=== PATIENT | female | born 1970 | race African-American/Black ===

== ENCOUNTER 2016-11-16 21:25 | Emergency (ER) | payer OTHER ==
[~2016-11-16] VITALS: Ht 165.1 cm; Wt 117.9 kg
[2016-11-16] MEDS ORDERED: AMOXICILLIN500 MG ORAL (21:43)
[2016-11-16] MEDS ORDERED: IBUPROFEN800 MG ORAL (21:43)
[2016-11-16] MEDS ORDERED: Ketorolac 60mg Inj IM ONE (21:45)
[2016-11-16 21:56] VITALS: BP 119/81
[2016-11-16 21:58] VITALS: BP 119/81
--- NOTE | 2016-11-16 23:16 | Emergency Room Report ---
History of Present Illness General Chief Complaint: Sore Throat Source: Patient Present Illness HPI [id number] with 3 days right sided sore throat with pain radiating to right ear. Denies fever/chills, cough, URI symptoms, sick contacts. No OTC meds taken. Denies muffled voice, trouble handling secretions. Allergies: Coded Allergies: No Known Allergies (Unverified , 11/16/16) Patient History Past Medical History: none Past Surgical History: none Pertinent Family History: none Social History: Denies: alcohol use, drug use, smoking Last Menstrual Period: last month Now: No Immunizations: UTD Reviewed Nursing Documentation: PMH: Agreed, PSxH: Agreed Review of Systems All Other Systems: negative except mentioned in HPI Physical Exam Vital Signs Date Time Temp Pulse Resp B/P Pulse Ox O2 Delivery O2 Flow Rate FiO2 11/16/16 21:31 99.0 82 16 112/77 98 Room Air Sp02 EP Interpretation: reviewed, normal General Appearance: normal inspection, well appearing, no apparent distress, alert Head: atraumatic ENT: normal ENT inspection, hearing grossly normal, normal pharynx, no angioedema, normal voice, TMs + canals normal, uvula midline, moist mucus membranes, other - ++right tonsillar exudated with posterior oropharynx erythema Neck: normal inspection, full range of motion, supple, no bony tend Respiratory: normal inspection, lungs clear, normal breath sounds, no respiratory distress, no retraction, no wheezing Cardiovascular #1: regular rate, rhythm, no edema Gastrointestinal: normal inspection, normal bowel sounds, non tender, soft, no guarding, no hernia Genitourinary: no CVA tenderness Musculoskeletal: normal inspection, back normal, normal range of motion, Ángela' s Sign negative Neurologic: normal inspection, alert, oriented x3, responsive, sheet rocker III-XII nml as tested, motor strength/tone normal, speech normal Psychiatric: normal inspection, judgement/insight normal, mood/affect normal Skin: normal inspection, normal color, no rash Medical Decision Making Diagnostic Impression: Primary Impression: Sore throat ER Course Sore throat, likely strep pharyngitis given physical exam findings IM toradol, PO decadron given in ED for symptomatic relief 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 11/16/16 Amoxicillin* (AMOXIL*) 500 Mg Capsule 500 MG ORAL BID for 10 Days, #20 CAP Prov: MADHURI YOUNG M.D. 11/16/16 Referrals: YIMI HURD,REFERRING (PCP) Patient Instructions: Sore Throat Additional Instructions: -Take all antibiotics as prescribed - Take Ibuprofen every 8hours as needed for sore throat MADHURI YOUNG M.D. Nov 16, 2016 23:16
== END 2016-11-16 21:58 | disposition home or self-care (01) ==
LOC: EMR 21:46
DX: J02.9 Acute pharyngitis, unspecified (principal)
CPT/HCPCS: 96372; 99284; J8540

== ENCOUNTER 2018-02-02 00:35 | Emergency (ER) | payer SELFPAY ==
[~2018-02-02] VITALS: Ht 165.1 cm; Wt 117.9 kg
[~2018-02-02 00:35] MED LIST: AMOXICILLIN500 MG ORAL; IBUPROFEN800 MG ORAL
[2018-02-02 01:00] VITALS: BP 111/68
[2018-02-02] MEDS ORDERED: AUGMENTIN 875-1 EAC1 ORAL (01:03)
[2018-02-02] MEDS ORDERED: IBUPROFEN600 MG ORAL (01:03)
[2018-02-02 01:08] VITALS: BP 111/68
--- NOTE | 2018-02-02 03:25 | Emergency Room Report ---
History of Present Illness General Chief Complaint: Flu Like Symptoms Source: Patient Present Illness HPI Patient presents with complaints of sore throat Ongoing for the past 2 days Patient has pain to her right ear Denies any fevers denies any chest pain or shortness of breath She did feel some mild body aches Denies any vomiting or diarrhea denies any photophobia Pain is 3 out of 10 worse with swallowing Allergies: Coded Allergies: No Known Allergies (Unverified , 11/16/16) Patient History Past Medical History: see triage record Pertinent Family History: none Last Menstrual Period: two weeks ago Now: No Reviewed Nursing Documentation: PMH: Agreed; PSxH: Agreed Review of Systems All Other Systems: negative except mentioned in HPI Physical Exam Vital Signs Date Time Temp Pulse Resp B/P (MAP) Pulse Ox O2 Delivery O2 Flow Rate FiO2 02/02/18 00:40 98.4 72 18 111/68 96 Room Air 98.4 Sp02 EP Interpretation: reviewed, normal General Appearance: well appearing, no apparent distress Head: normocephalic, atraumatic Eyes: bilateral eye PERRL, bilateral eye EOMI ENT: hearing grossly normal, TMs + canals normal, uvula midline, pharyngeal erythema Neck: full range of motion, supple, no meningismus, no bony tend Respiratory: lungs clear, normal breath sounds, no rhonchi, no respiratory distress, no retraction, no accessory muscle use Cardiovascular #1: normal peripheral pulses, regular rate, rhythm, no edema, no gallop, no JVD, no murmur Gastrointestinal: normal bowel sounds, non tender, soft, no mass, no organomegaly, non-distended, no guarding, no hernia, no pulsatile mass, no rebound Genitourinary: no CVA tenderness Musculoskeletal: normal inspection Neurologic: oriented x3, responsive, tobacco conditioner III-XII nml as tested, motor strength/ tone normal, sensory intact Psychiatric: mood/affect normal Skin: normal color, no rash, warm/dry, palpation normal Lymphatic: normal inspection, no adenopathy Medical Decision Making Diagnostic Impression: Primary Impression: pharyngitis ER Course Multiple differentials considered Patient's clinical exam is consistent with acute pharyngitis patient placed on oral antibiotics and requires close outpatient follow-up Last Vital Signs Date Time Temp Pulse Resp B/P (MAP) Pulse Ox O2 Delivery O2 Flow Rate FiO2 02/02/18 01:08 98.4 72 18 111/68 96 Room Air 98.4 Status: improved Disposition: HOME, SELF-CARE Condition: Stable Scripts Ibuprofen* (MOTRIN*) 600 Mg Tablet 600 MG ORAL Q8H PRN for For Pain for 10 Days, TAB 0 Refills Prov: Kendra Encarnacion DO 02/02/18 Amoxicillin/Potassium Clav 875-125* (AUGMENTIN 875-125 TABLET*) 1 Each Tablet 1 TAB ORAL TWICE A DAY, #14 TAB Prov: Kendra Encarnacion DO 02/02/18 Referrals: NOT CHOSEN [facility]/MD,REFERRING (PCP) Patient Instructions: Pharyngitis, [id number] Additional Instructions: Patient is provided with the discharge instructions notified to follow up with primary doctor in the next 2-3 days otherwise return to the er with any worsening symptoms. Please note that this report is being documented using [email or web address] technology. This can lead to erroneous entry secondary to incorrect interpretation by the dictating instrument. Kendra Encarnacion DO February 02, 2018 03:25
== END 2018-02-02 01:08 | disposition home or self-care (01) ==
LOC: EMR 00:47
DX: J02.9 Acute pharyngitis, unspecified (principal)
CPT/HCPCS: 99284